=== PATIENT | female | born 1995 | race African-American/Black ===

== ENCOUNTER 2021-11-03 21:31 | Emergency (ER) | payer MEDICAID ==
[~2021-11-03] VITALS: Ht 154.9 cm; Wt 77.3 kg
[2021-11-03] MEDS ORDERED: KETOROLAC 60MG/2ML VIAL IM ONE (22:45)
[2021-11-03 23:20] VITALS: BP 119/55
== END 2021-11-03 23:39 | disposition home or self-care (01) ==
LOC: ER 21:31
DX: B34.9 Viral infection, unspecified (principal); Z20.822 Contact with and (suspected) exposure to COVID-19; Z98.890 Other specified postprocedural states
CPT/HCPCS: 81025; 87426; 87804; 96372; 99283; J1885

== ENCOUNTER 2022-03-14 08:48 | Emergency (ER) | payer MEDICAID ==
[~2022-03-14] VITALS: Ht 157.5 cm; Wt 80.0 kg
[2022-03-14] MEDS ORDERED: IBUPROFEN 600MG TABLET PO ONE (10:00)
[2022-03-14] MEDS ORDERED: CYCLOBENZAPRINE 10MG TABLET PO ONE (10:00)
[2022-03-14] MEDS ORDERED: CYCL10TA7 MT (10:18)
[2022-03-14] MEDS ORDERED: IBUP-2028 MT (10:18)
[2022-03-14 10:50] VITALS: BP 130/65
== END 2022-03-14 10:51 | disposition home or self-care (01) ==
LOC: ER 08:56
DX: M54.9 Dorsalgia, unspecified (principal); M41.9 Scoliosis, unspecified; Z98.890 Other specified postprocedural states
CPT/HCPCS: 99283

== ENCOUNTER 2022-03-19 08:16 | Emergency (ER) | payer MEDICAID ==
[~2022-03-19] VITALS: Ht 157.5 cm; Wt 89.0 kg
[~2022-03-19 08:16] MED LIST: CYCL10TA7 MT; IBUP-2028 MT
[2022-03-19 08:36] VITALS: BP 128/69
[2022-03-19 10:59] LABS: CLARITY URINE CLOUDY (CLEAR); COLOR URINE YELLOW (YELLOW); KETONES URINE TRACE (NEGATIVE); LEUKOCYTE ESTERASE URINE 1+ (NEGATIVE); NITRITE URINE NEGATIVE (NEGATIVE); OCCULT BLOOD URINE TRACE (NEGATIVE); PH URINE 5.5 (4.5-8.0); PROTEIN URINE TRACE (NEGATIVE); SPECIFIC GRAVITY URINE 1.026 (1.005-1.030)
[2022-03-19 11:04] LABS: CHLORIDE 107 mEq/L (98-107)
[2022-03-19 11:06] LABS: BASOPHILS % 0.5 % (0.0-2.0); EOSINOPHILS % 5.4 % (0.0-5.0); HEMATOCRIT. 43.1 % (36.0-48.0); HEMOGLOBIN. 14.2 g/dL (12.0-16.0); LYMPHOCYTES % 18.9 % (20.0-50.0); MEAN CORPUSCULAR HEMOGLOBIN 26.8 pg (28.0-32.0); MEAN CORPUSCULAR VOLUME 81.5 fL (81.0-99.0); MEAN PLATELET VOLUME 8.3 fl (7.4-10.4); MONOCYTES % 9.5 % (2.0-8.0); NEUTROPHILS % 65.7 % (40.0-76.0); PLATELET 270 x1000/uL (130-400); RED BLOOD CELL COUNT 5.29 mill/uL (4.2-5.4); RED CELL DISTRIBUTION WIDTH 14.5 % (11.6-14.6)
[2022-03-19 12:13] LABS: HCG SCREEN NEGATIVE
[2022-03-19] MEDS ORDERED: MAGNESIUM/ALUMINUM HYDROXIDE/SIMETHICONE 30ML UDC PO STA (12:23)
[2022-03-19] MEDS ORDERED: VISCOUS LIDOCAINE 2% 15 ML UDC PO STA (12:23)
[2022-03-19] MEDS ORDERED: FAMOTIDINE 20MG TABLET PO ONE (12:30)
[2022-03-19] MEDS ORDERED: LIDO700A30 TP (12:54)
[2022-03-19] MEDS ORDERED: CIPR-263 MT (12:58)
== END 2022-03-19 13:12 | disposition home or self-care (01) ==
LOC: ER 08:26
DX: R10.13 Epigastric pain (principal); N39.0 Urinary tract infection, site not specified; M54.89 Other dorsalgia; M41.9 Scoliosis, unspecified; Z98.890 Other specified postprocedural states
CPT/HCPCS: 36415; 80053; 81003; 84703; 85025; 99284

== ENCOUNTER 2022-11-16 08:46 | Emergency (ER) | payer MEDICAID ==
[~2022-11-16] VITALS: Ht 154.9 cm; Wt 84.0 kg
[~2022-11-16 08:46] MED LIST changes: +CIPR-263 MT; +CYCL10TA21 MT; -CYCL10TA7 MT; +LIDO700A30 TP
[2022-11-16 09:18] VITALS: BP 124/59
== END 2022-11-16 10:47 | disposition home or self-care (01) ==
LOC: ER 08:53
DX: H54.40 Blindness, one eye, unspecified eye (principal); Z98.890 Other specified postprocedural states
CPT/HCPCS: 99281

== ENCOUNTER 2024-11-26 13:41 | Emergency (ER) | payer MEDICAID ==
[~2024-11-26] VITALS: Ht 157.5 cm; Wt 81.0 kg
[2024-11-26 13:59] VITALS: O2SAT 100
[2024-11-26 14:49] LABS: BASOPHILS % 0.7 % (0.0-2.0); EOSINOPHILS % 1.3 % (0.0-5.0); HEMATOCRIT. 39.7 % (36.0-48.0); LYMPHOCYTES % 22.4 % (20.0-50.0); MEAN CORPUSCULAR HEMOGLOBIN 28.5 pg (28.0-32.0); MEAN CORPUSCULAR HGB CONC 32.6 g/dL (31.0-37.0); MEAN CORPUSCULAR VOLUME 87.4 fL (81.0-99.0); MEAN PLATELET VOLUME 8.5 fl (7.4-10.4); MONOCYTES % 7.5 % (2.0-8.0); NEUTROPHILS % 68.1 % (40.0-76.0); PLATELET 281 x1000/uL (130-400); RED BLOOD CELL COUNT 4.55 mill/uL (4.2-5.4); RED CELL DISTRIBUTION WIDTH 12.9 % (11.6-14.6); WHITE BLOOD COUNT 7.9 x1000/uL (4.5-11.0)
[2024-11-26 14:58] LABS: CHLORIDE 109 mEq/L (98-107); SODIUM 140 mEq/L (136-145)
[2024-11-26 14:59] LABS: CARBON DIOXIDE 23 mEq/L (21-32)
[2024-11-26 15:04] LABS: CREATININE 0.8 mg/dL (0.6-1.0); GLUCOSE 103 mg/dL (70-105); UREA NITROGEN BLOOD 9 mg/dL (9-23)
[2024-11-26 15:06] LABS: ALANINE AMINOTRANSFERASE 10 IU/L (10-49); ALBUMIN 4.1 g/dL (3.2-4.8); ASPARTATE AMINOTRANSFERASE 13 IU/L (<34); BILIRUBIN DIRECT 0.3 mg/dL (<=3.0); PROTEIN TOTAL 6.9 g/dL (6.0-8.3)
[2024-11-26 15:32] LABS: CLARITY URINE TURBID (CLEAR); COLOR URINE YELLOW (YELLOW); GLUCOSE URINE NEGATIVE (NEGATIVE); KETONES URINE TRACE (NEGATIVE); LEUKOCYTE ESTERASE URINE 3+ (NEGATIVE); NITRITE URINE NEGATIVE (NEGATIVE); OCCULT BLOOD URINE NEGATIVE (NEGATIVE); PROTEIN URINE TRACE (NEGATIVE); SPECIFIC GRAVITY URINE 1.028 (1.005-1.030)
[2024-11-26 15:50] LABS: BACTERIA URINE 4+; SQUAMOUS EPITHELIAL CELL URINE 3+ /lpf (RARE/1+); TRICHOMONAS URINE FEW; WBC URINE 50-100 /hpf (0-2); YEAST URINE NONE SEEN
[2024-11-26] MEDS ORDERED: SULF1TAB48 MT (16:02)
[2024-11-26 16:25] VITALS: BP 138/81; PULSE 98; RESP 16; TEMP 36.8; O2SAT 100
== END 2024-11-26 16:25 | disposition home or self-care (01) ==
LOC: ER 13:41
DX: N39.0 Urinary tract infection, site not specified (principal); Z98.890 Other specified postprocedural states
CPT/HCPCS: 36415; 80048; 80076; 81003; 81025; 85025; 86850; 86900; 99283

== ENCOUNTER 2025-05-31 08:36 | Emergency (ER) | payer MEDICAID ==
[~2025-05-31] VITALS: Ht 154.9 cm; Wt 89.0 kg
[~2025-05-31 08:36] MED LIST changes: +SULF1TAB48 MT
[2025-05-31 08:48] VITALS: TEMP 36.7; O2SAT 99
[2025-05-31] MEDS ORDERED: TRIMO LEFTEYE (09:56)
[2025-05-31 10:01] VITALS: BP 128/65; PULSE 80; RESP 16; O2SAT 100
== END 2025-05-31 10:02 | disposition home or self-care (01) ==
LOC: ER 08:36
DX: H10.32 Unspecified acute conjunctivitis, left eye (principal); Z79.899 Other long term (current) drug therapy; Z98.890 Other specified postprocedural states
CPT/HCPCS: 99283